=== PATIENT | male | born 1995 | race Caucasian/White ===

== ENCOUNTER 2023-08-15 17:08 | Emergency (ER) | payer OTHER, SELFPAY ==
[2023-08-15 17:10] VITALS: BP 125/100
[2023-08-15 18:06] VITALS: BP 136/81
--- NOTE | 2023-08-15 18:08 | ED.GENMED ---
History of Present Illness
General
Chief Complaint: Throat Problem
Source: patient
Exam Limitations: none
Time Seen by Provider: 08/15/23 17:56
Nursing documentation reviewed up to this point in time: agreed with
Travel History
Have you had any contact with someone who has COVID-19?: No
Do you have any symptoms of coronavirus? Fever > 100 degrees, chills, cough, shortness of breath, sore throat, loss of taste or smell, muscle aches, or headache?: No
History of Present Illness
History of Present Illness:
28-year-old male with history of anxiety states earlier today he was at his parents house cleaning all of his stuff and organizing it, he was under a bed reaching under with his right hand to grab a bag that was stuck under the bed when he felt a
sudden pop in the left side of his chest and pain. He states the pain is completely gone at this point. He states when he got here he started having a feeling of trouble swallowing that has also completely dissipated. He admits he was feeling
anxious and this sensation in his throat was most likely related to his anxiety as he has had this before. He states he feels completely back to his baseline and wants to go home.
Past History
Past History
ED Past Medical History: Psychiatric (Anxiety)
ED Past Surgical History: Orthopedic
Social History
Tobacco: Non-smoker
Alcohol: None
Drug: None
Personal: Single
Living: with family
Review of Systems
Review of Systems
Allergies reviewed?: Yes
All Other Systems: ROS reviewed and negative except as documented in HPI and ROS
EENT: Reports mouth pain (Sore on the tip of his tongue.); Denies sore throat or mouth swelling
Phy Exam
Physical Exam
Physical Exam:
GENERAL: No acute distress. A&Ox3.
CONSTITUTIONAL: Afebrile.
EYES: PERRL, conjunctivae normal
Neck: Supple
ENMT: moist mucus membranes, Pharynx nl, speaking and swallowing well
RESPIRATORY: Regular respirations, nonlabored, lungs clear.
CARDIOVASCULAR: Regular rate and rhythm, no murmurs, no rubs.
GI: Soft, nontender, normal BS
MUSCULOSKELETAL: Unable to reproduce chest wall pain with palpation. Moves with ease. Well perfused.
SKIN: Warm, dry, pink
PSYCH: Mildly anxious mood and affect. Well kept, interactive and appropriate
NEUROLOGIC: Awake, alert and oriented. No focal neurological deficits
Course
Orders/Labs/Results
Orders:
Orders
08/15/23 17:15
EKG [Electrocardiogram (*1)] Urgent
Reason for Study: Chest Pain
EKG- Treatment ONCE
Vital Signs
Initial and Last Documented VS:
Initial Vital Signs
Temp Pulse Resp BP Pulse Ox
98.0 F 110 18 125/100 100
08/15/23 17:10 08/15/23 17:10 08/15/23 17:10 08/15/23 17:10 08/15/23 17:10
Last Documented Vital Signs
Temp Pulse Resp BP Pulse Ox
98.0 F 104 18 138/81 100
08/15/23 17:10 08/15/23 18:06 08/15/23 17:10 08/15/23 18:09 08/15/23 17:10
MDM/Problems Addressed
Differential Diagnosis Includes:
Chest wall strain, anxiety
MDM/Problems Addressed:
28-year-old male with history of anxiety states earlier today he was at his parents house cleaning all of his stuff and organizing it, he was under a bed reaching under with his right hand to grab a bag that was stuck under the bed when he felt a
sudden pop in the left side of his chest and pain. He states the pain is completely gone at this point. He states when he got here he started having a feeling of trouble swallowing that has also completely dissipated. He admits he was feeling
anxious and this sensation in his throat was most likely related to his anxiety as he has had this before. He states he feels completely back to his baseline and wants to go home.
Chest wall is nontender to palpation, pharynx is normal, voice is normal
Exam is unremarkable, patient is stable for discharge.
*Critical Care Note
Total Time (30-74mins, 75-104mins- exclusive of procedures): Not Applicable
ED Attending Note
-
Portions of this chart may have been created with voice recognition software.� Occasional wrong word or��sound alike� substitutions may have occurred due to the inherent limitations of voice recognition software.
Discharge Plan
Departure
Patient Disposition: Home (Routine Discharge)
Date of Disposition: 08/15/23
Time of Disposition: 18:02
Patient with high blood pressure during this ER visit?: No
Condition: Good
Discharge Problem:
Muscle strain of chest wall, Anxiety, Tongue ulcer
Instructions: Costochondritis, Mouth sores, Anxiety, Adult ED
Prescriptions:
No Action
methylprednisolone 4 MG tablet
6 tab PO DAILY Qty: 66 0RF
Rx Instructions:
6 pills daily x 6 days, then decrease dose by one pill every 2 days; i.e. 7-5-4-8-1-9-9-4-6-2-6-5-2-2-1-1
hydrocodone-ibuprofen 200 MG/7.5 MG tablet
1 tab PO Q6HPRN PRN (Reason: pain) Qty: 5 0RF
clindamycin HCl 300 MG capsule
300 mg PO QID Qty: 40 0RF
Referrals:
Katerina Oseguera DO [Family Provider] - As needed
Activity Restrictions/Additional Instructions:
As we discussed, there is nothing worrisome in your exam here today.
Chest wall painThe sore on the tip of your tongue is most likely a viral ulcer and should go away within the next few weeks.
Interventions
Interventions:
*Risk Screen - Suicide Last Done: 08/15/23 17:10
*General Assessment Last Done: 08/15/23 17:10
*Neglect/Abuse Screening Last Done: 08/15/23 17:10
*ED COVID-19 Vaccine History Last Done: 08/15/23 17:10
*Nursing Disposition Last Done: 08/15/23 18:09
ED- Cardiac Assessment Last Done: 08/15/23 18:09
ED-EENT Assessment Last Done: 08/15/23 18:09
ED- Pulmonary Assessment Last Done: 08/15/23 18:09
Discharge Date and Time
Discharge Date/Time: 08/15/23 18:11
[2023-08-15 18:09] VITALS: BP 138/81
== END 2023-08-15 18:11 | disposition home or self-care (01) ==
LOC: EMR 17:08
PROVIDERS: EMERGENCY PHYSICIAN Emergency Medicine; FAMILY PHYSICIAN Student in an Organized Health Care Education/Training Program
DX: S29.011A Strain of muscle and tendon of front wall of thorax, initial encounter (principal); K14.0 Glossitis; X58.XXXA Exposure to other specified factors, initial encounter; F41.9 Anxiety disorder, unspecified; Z88.8 Allergy status to other drugs, medicaments and biological substances; R13.10 Dysphagia, unspecified
CPT/HCPCS: 99283; 93005

== ENCOUNTER 2023-10-02 23:34 | Emergency (ER) | payer OTHER, SELFPAY ==
[2023-10-02 23:41] VITALS: BP 124/88
--- NOTE | 2023-10-03 00:10 | ED.GENMED ---
History of Present Illness
General
Chief Complaint: Anxiety
Source: patient
Exam Limitations: none
Time Seen by Provider: 10/02/23 23:54
Travel History
Have you had any contact with someone who has COVID-19?: No
Do you have any symptoms of coronavirus? Fever > 100 degrees, chills, cough, shortness of breath, sore throat, loss of taste or smell, muscle aches, or headache?: No
History of Present Illness
History of Present Illness:
This is a 28 year old male that comes in with c/o panic attack. States that he had been to his Therapist last night. States that he got home and had a conversation with his parents and then his Girlfriend. States that his dad was just diagnosed with
early onset Dementia and his mom is picking up the slack and he is to also. States that his brain just kicked into the fight or flight. [place] like he spun out of control. States that he has not sleep for the past 2 nights. States that he took more
Adderall then he was prescribed. States that his head and leg felt numb and it was difficulty to think. States that he felt lightheaded/dizzy. States that he just had to lay on the floor. State that when his girlfriend got there he was diaphoretic
and had chest pain. State that he thought he was controlling his breathing but he felt SOB. Denies any fever, chills, abd pain, nausea, vomiting, diarrhea, headache, urinary burning.
Past History
Past History
ED Past Medical History: Psychiatric (Anxiety, Panic disorder)
ED Past Surgical History: Orthopedic and Other (Myringotomy tubes as a child)
Social History
Tobacco: Non-smoker
Alcohol: None
Drug: None
Personal: Single
Living: with family
Review of Systems
Review of Systems
All Other Systems: ROS reviewed and negative except as documented in HPI and ROS
Constitutional: Reports no symptoms; Denies fever or chills
EENT: Reports no symptoms
Respiratory: Reports trouble breathing; Denies cough
Cardiac: Reports chest pain
ABD/GI: Reports no symptoms; Denies abdominal pain, nausea, vomiting or diarrhea
: Reports no symptoms; Denies dysuria, frequency or urgency
Musculoskeletal: Reports no symptoms
Skin: Reports no symptoms
Neurological: Reports numbness (legs felt numb) and other (Lightheaded ); Denies headache
Psychiatric: Reports no symptoms
Phy Exam
General Physical Exam
General Presentation: no apparent distress
General age: appears stated age
General Skin: warm and dry
General Habitus: normal
General Mental: anxious
General Hydration: appears well hydrated
ENT Exam
ENT Exam: TM's normal, pharynx normal and neck supple
Eye Exam
Eye Exam: EOMI
Cardiovascular Exam
Cardiovascular Exam: regular rate/rhythm, no edema, no murmur and normal peripheral pulses
Pulmonary Exam
Pulmonary Exam: lungs clear, no respiratory distress, no rales, chest non tender, no crackles, no rhonchi, no wheezing and no cough
Gastrointestinal Exam
Gastrointestinal Exam: normal bowel sounds, non tender, soft, no organomegaly, no pulsatile mass and non distended
Musculoskeletal Exam
Musculoskeletal Exam: full ROM and no edema
Skin Exam
Skin Exam: normal color, warm/dry, no rash and no petechia
Psychiatric Exam
Psychiatric Exam: anxious (Panic attack)
Course
Orders/Labs/Results
Orders:
Orders
10/03/23 00:10
Electrocardiogram (*1) Urgent
Reason for Study: Chest Pain
EKG- Treatment ONCE
10/03/23 00:20
Lorazepam [Ativan] 1 mg PO NOW STA
10/03/23 00:23
Complete Blood Count/With Diff Urgent
Comprehensive Metabolic Panel Urgent
Fentanyl, Urine Urgent
Troponin I Urgent
Urine Drug Abuse Screen Urgent
Date Specimen was Collected: 10/03/23
Time Specimen was Collected: 00:12
Abnormal Lab Results
10/03/23
00:23
RBC 4.62 L 10^6/uL
(4.70-6.10)
MPV 10.5 H fL
(7.4-10.4)
Carbon Dioxide 21 L mmol/L
(22-30)
BUN 8 L mg/dl
(9-20)
Ur Amphetamines Screen Positive H
(Negative)
10/03/23 00:23
10/03/23 00:23
carbon dioxide slightly low. Urine positive for Amphetamines (Adderall), Troponin <0.012, Urine drug negative for Fentanyl
Vital Signs
Initial and Last Documented VS:
Initial Vital Signs
Temp Pulse Resp BP Pulse Ox
98 F 104 26 124/88 98
10/02/23 23:41 10/02/23 23:41 10/02/23 23:41 10/02/23 23:41 10/02/23 23:41
Last Documented Vital Signs
Temp Pulse Resp BP Pulse Ox
98 F 82 15 120/72 95
10/02/23 23:41 10/03/23 01:45 10/03/23 01:45 10/03/23 01:45 10/03/23 01:53
MDM/Problems Addressed
Differential Diagnosis Includes:
panic attack, Anxiety
MDM/Problems Addressed:
This is a 28 year old male that comes in with c/o panic attack. States that he thought he had his breathing under control but he felt SOB and had chest pain. States that he had to lay down on the floor and when his girlfriend got there was sweaty.
Will check labs, ECG and urine. Will also give Oral Ativan
Back into see patient. Patient states that he is feeling better. Explained that he needs to stop abusing his Adderall as this what is making him hipper and not being able to sleep. Patent to follow up with his Therapist. Return with any concerns.
Chronic conditions affecting care: Psychiatric illness
Acute Exacerbation and/or Progression of Chronic Illness: Psychiatric illness
*Pulse Oximetry
Patient hypoxic: no
*EKG
Interpreted by ED Provider?: Yes
Heart Rate: 83
Rate: normal
Rhythm: sinus
[place]: normal axis
Interval: normal interval
QRS Pattern: normal QRS
Ischemia: no ischemia
*Director Nursing Service Interpretation
Rate: Director Nursing Service- N/A
*Critical Care Note
Total Time (30-74mins, 75-104mins- exclusive of procedures): Not Applicable
ED Attending Note
-
Portions of this chart may have been created with voice recognition software.� Occasional wrong word or��sound alike� substitutions may have occurred due to the inherent limitations of voice recognition software.
Discharge Plan
Departure
Patient Disposition: Home (Routine Discharge)
Date of Disposition: 10/03/23
Time of Disposition: 01:31
Patient with high blood pressure during this ER visit?: No
Condition: Good
Covid-19: Not Applicable
Discharge Problem:
Panic attack, Adderall use disorder, severe
Instructions: Panic Disorder (DC), Dextroamphetamine and Amphetamine
Prescriptions:
No Action
methylprednisolone 4 MG tablet
6 tab PO DAILY Qty: 66 0RF
Rx Instructions:
6 pills daily x 6 days, then decrease dose by one pill every 2 days; i.e. 6-9-7-8-0-3-3-5-0-5-1-7-2-2-1-1
hydrocodone-ibuprofen 200 MG/7.5 MG tablet
1 tab PO Q6HPRN PRN (Reason: pain) Qty: 5 0RF
clindamycin HCl 300 MG capsule
300 mg PO QID Qty: 40 0RF
Referrals:
Katerina Oseguera DO [Family Provider] - Follow up in 2-3 days
Activity Restrictions/Additional Instructions:
As discussed, your blood work is normal. Your urine is positive for amphetamine. This is due to your Adderall. You are abusing your medication and this is why you are not able to sleep or think clearly. Please follow up with your Canceller for
further evaluation. IF YOU HAVE ANY OTHER CONCERNS PLEASE RETURN TO THE EMERGENCY ROOM.
Interventions
Interventions:
*Risk Screen - Suicide Last Done: 10/02/23 23:41
*General Assessment Last Done: 10/03/23 00:13
*Neglect/Abuse Screening Last Done: 10/02/23 23:41
ED- Fall Risk Assessment Last Done: 10/03/23 00:13
*ED COVID-19 Vaccine History Last Done: 10/03/23 00:13
*Nursing Disposition Last Done: 10/03/23 01:53
ED-Psychological Assessment Last Done: 10/03/23 00:13
Discharge Date and Time
Print Language: AMERICAN
[2023-10-03 00:13] VITALS: BMI 25.5
[2023-10-03 00:27] VITALS: BP 120/80
[2023-10-03] MEDS: ATIVAN 1 MG PO (00:34)
[2023-10-03 00:39] LABS: % Basophils 0.9 % (0-2); % Eosinophils 1.2 % (0-6); % Immature Granulocytes 0.2 % (0-0.5); % Lymphocytes 37.6 % (20.5-51.1); % Monocytes 8.8 % (1.7-9.3); % Neutrophils 51.3 % (42.2-75.2); Absolute Basophils 0.1 10^3/uL (0-0.2); Absolute Eosinophils 0.1 10^3/uL (0-0.7); Absolute Lymphocytes 2.5 10^3/uL (1.2-3.4); Absolute Monocytes 0.6 10^3/uL (0.1-0.6); Absolute Neutrophils 3.3 10^3/uL (1.4-6.5); Hematocrit 39.2 % (39.0-52.0); Hemoglobin 14.1 g/dL (13.0-18.0); Mean Corpuscular Hgb 30.5 pg (27.0-31.0); Mean Corpuscular Volume 84.8 fL (80.0-94.0); Mean Platelet Volume 10.5 fL (7.4-10.4); Nucleated Red Blood Cells % 0 % (-); Platelet Count 339 10^3/uL (130-400); Red Blood Cell Count 4.62 10^6/uL (4.70-6.10); Red Cell Dist. Width 12.8 % (11.5-14.5); White Blood Cell Count 6.5 10^3/uL (4.8-10.8)
[2023-10-03 00:59] LABS: ALT (SGPT) 28 U/L (0-50); AST (SGOT) 27 U/L (17-59); Albumin 4.6 g/dl (3.5-5.0); Alkaline Phosphatase 79 U/L (38-126); Blood Urea Nitrogen 8 mg/dl (9-20); Calcium 10.2 mg/dl (8.4-10.2); Carbon Dioxide 21 mmol/L (22-30); Chloride 104 mmol/L (98-107); Estimated Creatinine Clearance 111 ml/min; Glucose 91 mg/dl (70-99); Potassium 3.7 mmol/L (3.5-5.1); Sodium 138 mmol/L (135-145); Total Protein 7.5 g/dl (6.3-8.2); eGFR > 60.00
[2023-10-03 01:00] VITALS: BP 112/68
[2023-10-03 01:03] LABS: Amphetamines Positive (Negative); Barbiturates Negative (Negative); Benzodiazepines Negative (Negative); Buprenorphine Negative (Negative); Cocaine Negative (Negative); Marijuana Negative (Negative); Methadone Negative (Negative); Methamphetamines Negative (Negative); Opiates Negative (Negative); Phencyclidine Negative (Negative); Tricyclic Antidepressants Negative (Negative)
[2023-10-03 01:11] LABS: Troponin I < 0.012 ng/ml
[2023-10-03 01:16] LABS: Fentanyl, Urine Negative (Negative)
[2023-10-03 01:45] VITALS: BP 120/72
== END 2023-10-03 02:01 | disposition home or self-care (01) ==
LOC: EMR 23:34
PROVIDERS: Clinical Nurse Specialist Family Health; EMERGENCY PHYSICIAN Emergency Medicine; FAMILY PHYSICIAN Student in an Organized Health Care Education/Training Program
DX: F41.0 Panic disorder [episodic paroxysmal anxiety] (principal)
CPT/HCPCS: 99283; 80053; 80306; 80307; 84484; 85025; 93005

== ENCOUNTER 2024-04-17 13:07 | Emergency (ER) | payer OTHER, SELFPAY ==
[2024-04-17 13:13] VITALS: BP 134/82
--- NOTE | 2024-04-17 13:57 | ED.GENMED ---
History of Present Illness
General
Chief Complaint: Musculo-Skeletal Complaint
Source: patient
Exam Limitations: none
Time Seen by Provider: 04/17/24 13:43
Nursing documentation reviewed up to this point in time: agreed with
History of Present Illness
History of Present Illness:
29 y/o M
h/o anxiety, adhd, depression, PTSD
no psych meds x 3 mo
here with pain in R lower ribs
pt was leaning over a tall trashcan to pull something out about 8 days ago and felt a pop in his R lower rib region anteriorly
he was feeling sore for a few days but then about 3 days ago his pain got a lot worse
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
he has tried tylenol and motrin with mild relief
he isn't feeling overly sob, denies pain with walking but he has pain with twisting, bending, deep breathing
no blood thinners
no bruising
no fever/cough.
Past History
Past History
ED Past Medical History: Psychiatric (Anxiety, Panic disorder)
ED Past Surgical History: Orthopedic and Other (Myringotomy tubes as a child)
Social History
Tobacco: Non-smoker
Alcohol: None
Drug: None
Personal: Single
Living: with family
Review of Systems
Review of Systems
Allergies reviewed?: Yes
All Other Systems: Not applicable
Phy Exam
Physical Exam
Physical Exam:
GENERAL: Alert , in no apparent distress
EYE: pupils equal and reactive
NECK: Supple
ENT: o/p clr, mmm.
CARDIAC: Regular rate and rhythm .
LUNGS: Clear breath sounds bilaterally, no acute respiratory distress, no wheezes/rales/rhonchi
right anterior lower chest wall lower rib approx 11 pt has tendrness
no abdominal tendenress
some pain with deep breathing but is not splinting
ABDOMEN: Soft, without focal tenderness, no r/g, no cvat, normal bowel sounds
NEUROLOGICAL: Alert and oriented, no focal neuro deficits
SKIN: Warm and dry, skin intact.
MUSCULOSKELETAL: No edema, well perfused. neg shannon's sign
PSYCH: Normal and appropriate interaction.
Course
Orders/Labs/Results
Orders:
Orders
04/17/24 13:31
Ribs, Right 3 View W/PA Chest [CR Ribs-right 3 Vw W/pa Chest*] Urgent
Comment:
Reason For Exam: pain
04/17/24 14:45
Naloxone [Narcan] 0.4 mg IV NOW STA
Vital Signs
Initial and Last Documented VS:
Initial Vital Signs
Temp Pulse Resp BP Pulse Ox
97.8 F 82 18 134/82 96
04/17/24 13:13 04/17/24 13:13 04/17/24 13:13 04/17/24 13:13 04/17/24 13:13
Last Documented Vital Signs
Temp Pulse Resp BP Pulse Ox
97.8 F 82 18 134/82 96
04/17/24 13:13 04/17/24 13:13 04/17/24 13:13 04/17/24 13:13 04/17/24 13:13
MDM/Problems Addressed
Differential Diagnosis Includes:
rib strain, fracture, contusion
MDM/Problems Addressed:
29 y/o M
8 days ago felt pop in R lower chest when he leaned over a trashcan and reached for something
he has had pain since but in the past 3 days the pain is much worse
he has a new job so he has been doing a lot more acitivyt, leaning, dishes etc
pt has tried some tylenol/motrin so he wasn't sure why his pain is lasting this long
no fevr/chils/cough/cold symptoms
no ac
well appearing
pain reproduced with change in position, reaching, sitting up, and deep breathing but pt is not dyspneic
pule ox normal
clear lungs
point tenderness to lower rib
cxr indep reviewed, no fx, no ptx
nsaids, lidocaine patches
*Critical Care Note
Total Time (30-74mins, 75-104mins- exclusive of procedures): Not Applicable
ED Attending Note
-
Portions of this chart may have been created with voice recognition software.� Occasional wrong word or��sound alike� substitutions may have occurred due to the inherent limitations of voice recognition software.
Discharge Plan
Departure
Patient Disposition: Home (Routine Discharge)
Date of Disposition: 04/17/24
Time of Disposition: 14:53
Patient with high blood pressure during this ER visit?: No
Condition: Fair
Covid-19: Not Applicable
Discharge Problem:
Contusion of rib on right side
Instructions: Contusion (DC), Bruised Rib (DC)
Prescriptions:
New
naproxen 500 mg tablet
500 mg PO BID PRN (Reason: Pain) Qty: 10 0RF
lidocaine 5 % adhesive patch,medicated
1 patch topical DAILY PRN (Reason: pain) Qty: 15 0RF
No Action
methylprednisolone 4 MG tablet
6 tab PO DAILY Qty: 66 0RF
Rx Instructions:
6 pills daily x 6 days, then decrease dose by one pill every 2 days; i.e. 6-3-1-2-6-0-1-9-6-9-8-7-2-2-1-1
hydrocodone-ibuprofen 200 MG/7.5 MG tablet
1 tab PO Q6HPRN PRN (Reason: pain) Qty: 5 0RF
clindamycin HCl 300 MG capsule
300 mg PO QID Qty: 40 0RF
Referrals:
Cande Andrade CRNP [Family Provider] - Follow up in 2-3 days
Activity Restrictions/Additional Instructions:
Your x-ray does not show any obvious broken rib but they can be hard to see
bruised or strained ribs are treated the same as broken ribs
tylenol 3 times aday
naproxen twice a day with food
make sure to take deep breaths to avoid pneumonia
lidocaine patch 12 hours ion 12 hours off as needed
follow up with your doctor
return for: fever, worse trouble breathing, productive cough, worsening shortness of breath or any concerns.
Interventions
Interventions:
*Risk Screen - Suicide Last Done: 04/17/24 13:13
*General Assessment Last Done: 04/17/24 13:13
*Neglect/Abuse Screening Last Done: 04/17/24 13:13
*Nursing Disposition Last Done: 04/17/24 15:30
ED-Musculoskeletal Assessment Last Done: 04/17/24 14:01
Discharge Date and Time
Discharge Date/Time: 04/17/24 15:30
Print Language: BARBAD[place]
== END 2024-04-17 15:30 | disposition home or self-care (01) ==
LOC: EMR 13:07
PROVIDERS: EMERGENCY PHYSICIAN Emergency Medicine; FAMILY PHYSICIAN Nurse Practitioner Family
DX: S20.211A Contusion of right front wall of thorax, initial encounter (principal); X50.1XXA Overexertion from prolonged static or awkward postures, initial encounter
CPT/HCPCS: 99284; 71101